=== PATIENT | female | born 1965 | race Caucasian/White ===

== ENCOUNTER 2018-01-20 10:29 | Emergency (ER) | payer SELFPAY ==
[2018-01-20 10:41] VITALS: BP 122/95
[2018-01-20] MEDS ORDERED: Lidocaine 2% Viscous Solution 100 ML Bottle PO ONE (10:45)
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
[2018-01-20] MEDS ORDERED: Lidocaine 2% Viscous Solution 15 ML Cup ONE (11:14)
[2018-01-20] MEDS ORDERED: Lidocaine 2% Viscous Solution 15 ML Cup PO ONE (11:18)
== END 2018-01-20 11:28 | disposition home or self-care (01) ==
LOC: MW.ED 10:29
DX: T28.5XXA Corrosion of mouth and pharynx, initial encounter (principal); T20.42XA Corrosion of unspecified degree of lip(s), initial encounter; T78.49XA Other allergy, initial encounter; Z88.8 Allergy status to other drugs, medicaments and biological substances; Z88.0 Allergy status to penicillin; Z88.1 Allergy status to other antibiotic agents; Z88.2 Allergy status to sulfonamides
CPT/HCPCS: 99283; A9270